=== PATIENT | female | born 1985 | race Caucasian/White ===

== ENCOUNTER 2019-10-07 08:00 | Inpatient (IN) ==
[2019-10-07] MEDS ORDERED: Naloxone 0.4 MG/ML INJ IVP PRN (09:07)
[2019-10-07] MEDS ORDERED: Famotidine 20 MG/2 ML VIAL IVP PRN (09:07)
[2019-10-07] MEDS ORDERED: Metoclopramide 10 MG/2 ML VIAL IVP PRN (09:07)
[2019-10-07] MEDS ORDERED: Ringers Solution, Lactated 1,000 ML IVC SCH (09:15)
[2019-10-07] MEDS: miSOPROStoL 25 MCG TABLET PO PRN ×2 (11:39→17:59)
[2019-10-07 11:46] LABS: Basophils % 0.1 %; Eosinophils % 0.2 %; Hematocrit 33.2 % (35.3-44.9); Immature Granulocytes % 0.9 % (0-4); Lymphocytes # 1.7 K/mcL (0.6-4.6); Lymphocytes % 16.9 %; Mean Corpuscular HGB Conc 33.1 g/dL (31.6-35.5); Mean Corpuscular Hemoglobin 29.7 pg (28.0-33.3); Mean Corpuscular Volume 89.7 fL (83.0-100.0); Mean Platelet Volume 10.1 fL (9.4-12.4); Monocytes # 0.7 K/mcL (0.0-1.3); Monocytes % 7.2 %; Neutrophils # 7.3 K/mcL (1.6-8.9); Platelet Count 154 K/mcL (140-400); Red Cell Distribution Width 14.4 % (11.5-14.5); Segmented Neutrophils % 74.7 %; White Blood Count 9.8 K/mcL (4.3-11.1)
[2019-10-07 11:48] LABS: Amphetamine Screen,Urine Negative ng/mL (Cutoff=1000); Barbiturate Screen,Urine Negative ng/mL (Cutoff=200); Benzodiazepines Screen,Urine Negative ng/mL (Cutoff=200); Cannabinoid Screen,Urine Negative ng/mL (Cutoff = 50); Cocaine Screen,Urine Negative ng/mL (Cutoff= 300); Opiate Screen,Urine Negative ng/mL (Cutoff=300); Phencyclidine Screen,Urine Negative ng/mL (Cutoff=25)
[2019-10-07] MEDS ORDERED: Acetaminophen 325 MG TABLET PO PRN (12:59)
[2019-10-07] MEDS ORDERED: Ondansetron 4 MG/2 ML VIAL IVP PRN (13:00)
[2019-10-07] MEDS: *HR* FentaNYL (PF) 100 MCG/2 ML VIAL IVP PRN ×2 (13:44→17:17)
[2019-10-07] MEDS ORDERED: Oxytocin 20 units/ LR 1000 mL 20 UNIT/1,000 ML BAG IVC SCH (22:30)
[2019-10-08] MEDS ORDERED: *HR* FentaNYL (PF) 100 MCG/2 ML VIAL IVP PRN (03:52)
[2019-10-08] MEDS ORDERED: Naloxone 0.4 MG/ML INJ IVP PRN (07:22)
[2019-10-08] MEDS ORDERED: EPHEDrine 50 MG/ML VIAL IVP PRN (07:22)
[2019-10-08] MEDS ORDERED: Ondansetron 4 MG/2 ML VIAL IVP PRN ×2 (07:22→19:52)
[2019-10-08] MEDS ORDERED: *HR* FentaNYL (PF) 100 MCG/2 ML VIAL EP ONE (07:22)
[2019-10-08] MEDS ORDERED: *HR* FentaNYL (PF) 100 MCG/2 ML VIAL ONE (07:29)
[2019-10-08] MEDS ORDERED: Epidural Premix (fent/bupiv) 110 ML EP SCH (07:30)
[2019-10-08] MEDS ORDERED: D5% in Lactated Ringers 500 ML IV SOLUTION IVC ONE (13:40)
[2019-10-08] MEDS ORDERED: D5% in Lactated Ringers 1,000 ML IVC SCH (14:15)
[2019-10-08] MEDS ORDERED: Vancomycin 1,000 MG in Sodium Chloride IRRigation 250 ML IR ONE (15:15)
[2019-10-08] MEDS ORDERED: Lidocaine -MPF 2% 5 ML VIAL ONE ×2 (15:27→16:21)
[2019-10-08] MEDS ORDERED: Ringers Solution, Lactated 1,000 ML ONE (16:20)
[2019-10-08] MEDS ORDERED: *HR* Oxytocin 10 UNIT/ML VIAL IM ONE (16:21)
[2019-10-08] MEDS ORDERED: *HR* Morphine Sulfate/PF 10 MG/10 ML AMPUL ONE (16:21)
[2019-10-08] MEDS ORDERED: Ketorolac 30 MG/ML VIAL ONE (16:25)
[2019-10-08 16:47] LABS: Basophils % 0.1 %; Eosinophils % 0.1 %; Hematocrit 34.4 % (35.3-44.9); Hemoglobin 11.3 g/dL (11.5-15.4); Immature Granulocytes % 1.1 % (0-4); Lymphocytes # 1.3 K/mcL (0.6-4.6); Mean Corpuscular HGB Conc 32.8 g/dL (31.6-35.5); Mean Corpuscular Hemoglobin 29.5 pg (28.0-33.3); Mean Corpuscular Volume 89.8 fL (83.0-100.0); Mean Platelet Volume 10.6 fL (9.4-12.4); Neutrophils # 12.2 K/mcL (1.6-8.9); Platelet Count 148 K/mcL (140-400); Red Blood Count 3.83 M/mcL (3.82-4.97); Red Cell Distribution Width 14.3 % (11.5-14.5); Segmented Neutrophils % 82.7 %; White Blood Count 14.8 K/mcL (4.3-11.1)
[2019-10-08] MEDS ORDERED: Metoclopramide 10 MG/2 ML VIAL IVP PRN (19:52)
[2019-10-08] MEDS ORDERED: Measles/Mumps/Rubella Vacc 0.5 ML VIAL SQ ONE (19:52)
[2019-10-08] MEDS: Ibuprofen 600 MG TABLET PO SCH (19:53)
[2019-10-08] MEDS ORDERED: Simethicone 80 MG TAB.CHEW PO PRN (20:41)
[2019-10-08] MEDS: Oxytocin 20 units/ LR 1000 mL 20 UNIT/1,000 ML BAG IVC SCH (21:05)
[2019-10-08] MEDS: Acetaminophen 325 MG TABLET PO SCH (23:11)
[2019-10-08] MEDS: *HR* Enoxaparin 40 MG/0.4 ML SYRINGE SQ SCH (23:12)
[2019-10-09] MEDS: Acetaminophen 325 MG TABLET PO SCH ×4 (00:30→18:57)
[2019-10-09] MEDS: ceFAZolin 1,000 MG in Water for inj. (sterile) 10 ML IVP SCH ×2 (00:36→08:23)
[2019-10-09] MEDS: Ibuprofen 600 MG TABLET PO SCH ×5 (00:37→21:56)
[2019-10-09] MEDS: MetroNIDAZOLE 500 MG/100 ML 500 MG/100 ML BAG IVPB SCH ×2 (00:40→08:22)
[2019-10-09 07:36] LABS: Basophils % 0.1 %; Eosinophils % 0.1 %; Hematocrit 28.6 % (35.3-44.9); Immature Granulocytes % 0.6 % (0-4); Lymphocytes # 0.9 K/mcL (0.6-4.6); Lymphocytes % 6.1 %; Mean Corpuscular HGB Conc 33.2 g/dL (31.6-35.5); Mean Corpuscular Hemoglobin 29.8 pg (28.0-33.3); Mean Corpuscular Volume 89.7 fL (83.0-100.0); Mean Platelet Volume 10.5 fL (9.4-12.4); Monocytes # 0.9 K/mcL (0.0-1.3); Monocytes % 6.1 %; Neutrophils # 12.5 K/mcL (1.6-8.9); Platelet Count 120 K/mcL (140-400); Red Blood Count 3.19 M/mcL (3.82-4.97); Red Cell Distribution Width 14.3 % (11.5-14.5); White Blood Count 14.4 K/mcL (4.3-11.1)
[2019-10-09 07:40] LABS: Hemoglobin 9.5 g/dL (11.5-15.4)
[2019-10-09] MEDS: Prenatal Vit/FA 1 EACH TABLET PO SCH (08:21)
[2019-10-09] MEDS: Oxytocin 20 units/ LR 1000 mL 20 UNIT/1,000 ML BAG IVC SCH (08:22)
[2019-10-09] MEDS: *HR* Enoxaparin 40 MG/0.4 ML SYRINGE SQ SCH ×2 (08:26→21:57)
[2019-10-09] MEDS: cephALEXin 500 MG CAPSULE PO SCH ×2 (16:49→21:55)
[2019-10-09] MEDS: *HR* OxyCODONE Immed Rel 5 MG TABLET PO PRN (16:51)
[2019-10-09] MEDS: metroNIDAZOLE 500 MG TABLET PO SCH (21:55)
[2019-10-10] MEDS: *HR* OxyCODONE Immed Rel 5 MG TABLET PO PRN ×2 (01:31→06:38)
[2019-10-10 01:46] VITALS: BP 108/67
[2019-10-10] MEDS: Acetaminophen 325 MG TABLET PO SCH (06:38)
[2019-10-10] MEDS: Prenatal Vit/FA 1 EACH TABLET PO SCH (09:20)
[2019-10-10] MEDS: metroNIDAZOLE 500 MG TABLET PO SCH (09:20)
[2019-10-10] MEDS: *HR* Enoxaparin 40 MG/0.4 ML SYRINGE SQ SCH (09:21)
[2019-10-10] MEDS: cephALEXin 500 MG CAPSULE PO SCH (09:21)
== END 2019-10-10 13:30 | disposition home or self-care (01) | DRG 788 ==
LOC: 1NENULAB 08:08 → 1NENUOBS 10-08 19:53
PROVIDERS: ADMIT Obstetrics & Gynecology; ATTEND Obstetrics & Gynecology

== ENCOUNTER 2020-12-21 05:51 | Inpatient (IN) ==
[2020-12-21] MEDS ORDERED: Metoclopramide 10 MG/2 ML VIAL IVP PRN ×2 (05:53→12:22)
[2020-12-21] MEDS ORDERED: Famotidine 20 MG/2 ML VIAL IVP PRN (05:53)
[2020-12-21] MEDS ORDERED: Naloxone 0.4 MG/ML INJ IVP PRN (05:53)
[2020-12-21 06:32] LABS: Basophils % 0.2 %; Eosinophils # 0.1 K/mcL (0.0-0.6); Eosinophils % 0.6 %; Hematocrit 33.4 % (35.3-44.9); Hemoglobin 10.5 g/dL (11.5-15.4); Immature Granulocytes % 0.6 % (0-4); Lymphocytes # 1.9 K/mcL (0.6-4.6); Lymphocytes % 22.6 %; Mean Corpuscular HGB Conc 31.4 g/dL (31.6-35.5); Mean Corpuscular Hemoglobin 27.3 pg (28.0-33.3); Mean Platelet Volume 11.5 fL (9.4-12.4); Monocytes # 0.6 K/mcL (0.0-1.3); Monocytes % 7.3 %; Neutrophils # 5.7 K/mcL (1.6-8.9); Platelet Count 146 K/mcL (140-400); Red Blood Count 3.84 M/mcL (3.82-4.97); Red Cell Distribution Width 13.6 % (11.5-14.5); Segmented Neutrophils % 68.7 %; White Blood Count 8.2 K/mcL (4.3-11.1)
[2020-12-21] MEDS: Ringers Solution, Lactated 1,000 ML IVC SCH ×2 (06:37→07:26)
[2020-12-21 06:51] LABS: Amphetamine Screen,Urine Negative ng/mL (Cutoff=1000); Barbiturate Screen,Urine Negative ng/mL (Cutoff=200)
[2020-12-21 06:52] LABS: Benzodiazepines Screen,Urine Negative ng/mL (Cutoff=300); Cannabinoid Screen,Urine Negative ng/mL (Cutoff = 50); Cocaine Screen,Urine Negative ng/mL (Cutoff= 300); Opiate Screen,Urine Negative ng/mL (Cutoff=300); Phencyclidine Screen,Urine Negative ng/mL (Cutoff=25)
[2020-12-21] MEDS ORDERED: CEFAZOLIN IVPB ONE (06:58)
[2020-12-21] MEDS ORDERED: Oxytocin 20 units/ LR 1000 mL 20 UNIT/1,000 ML BAG IVC ONE ×2 (07:16→10:33)
[2020-12-21] MEDS ORDERED: *HR* Phenylephrine 10 MG/ML VIAL ONE (07:34)
[2020-12-21] MEDS ORDERED: Ondansetron 4 MG/2 ML VIAL ONE (07:34)
[2020-12-21] MEDS ORDERED: *HR* Morphine Sulfate/PF 10 MG/10 ML AMPUL ONE (07:36)
[2020-12-21] MEDS ORDERED: *HR* FentaNYL (PF) 100 MCG/2 ML VIAL ONE (07:37)
[2020-12-21] MEDS ORDERED: *HR* HYDROmorphone PF 0.5 MG/0.5 ML SYRINGE IVP PRN (08:48)
[2020-12-21] MEDS ORDERED: Acetaminophen IV 1,000 MG/100 ML BAG IVPB ONE (08:52)
[2020-12-21] MEDS ORDERED: Ketorolac 30 MG/ML VIAL ONE (08:59)
[2020-12-21] MEDS ORDERED: Rho Immune Globulin 1,500 UNIT SYRINGE IM ONE (12:22)
[2020-12-21] MEDS ORDERED: Ondansetron 4 MG/2 ML VIAL IVP PRN (12:22)
[2020-12-21] MEDS ORDERED: Albuterol 2.5 MG/3 ML NEBULIZER IH PRN (12:22)
[2020-12-21] MEDS ORDERED: Sennosides 8.6 MG TABLET PO PRN (12:22)
[2020-12-21] MEDS ORDERED: Simethicone 80 MG TAB.CHEW PO PRN (12:22)
[2020-12-21] MEDS ORDERED: Oxytocin 20 units/ LR 1000 mL 20 UNIT/1,000 ML BAG IVC SCH ×2 (12:22)
[2020-12-21] MEDS ORDERED: Ringers Solution, Lactated 1,000 ML IVC SCH (12:22)
[2020-12-21] MEDS: Ibuprofen 600 MG TABLET PO PRN (13:18)
[2020-12-21] MEDS: *HR* OxyCODONE/APAP 5/325 TABLET PO PRN ×2 (15:50→20:54)
[2020-12-21] MEDS: *HR* Enoxaparin 60 MG/0.6 ML SYRINGE SQ SCH (16:56)
[2020-12-22] MEDS: Ibuprofen 600 MG TABLET PO PRN ×4 (02:52→23:57)
[2020-12-22] MEDS: *HR* OxyCODONE/APAP 5/325 TABLET PO PRN ×3 (02:52→20:43)
[2020-12-22 03:56] LABS: Basophils % 0.1 %; Eosinophils % 0.3 %; Hematocrit 27.3 % (35.3-44.9); Hemoglobin 8.5 g/dL (11.5-15.4); Immature Granulocytes % 0.6 % (0-4); Immature Platelets 7.6 % (1.1-6.1); Lymphocytes # 1.7 K/mcL (0.6-4.6); Lymphocytes % 14.4 %; Mean Corpuscular HGB Conc 31.1 g/dL (31.6-35.5); Mean Corpuscular Hemoglobin 27.1 pg (28.0-33.3); Mean Corpuscular Volume 86.9 fL (83.0-100.0); Mean Platelet Volume 10.9 fL (9.4-12.4); Monocytes % 8.2 %; Neutrophils # 8.9 K/mcL (1.6-8.9); Platelet Count 144 K/mcL (140-400); Red Blood Count 3.14 M/mcL (3.82-4.97); Red Cell Distribution Width 13.4 % (11.5-14.5); Segmented Neutrophils % 76.4 %; White Blood Count 11.6 K/mcL (4.3-11.1)
[2020-12-22] MEDS: *HR* Enoxaparin 60 MG/0.6 ML SYRINGE SQ SCH ×2 (06:04→20:34)
[2020-12-22] MEDS: Prenatal Vit/FA 1 EACH TABLET PO SCH (08:00)
[2020-12-23] MEDS: *HR* Enoxaparin 60 MG/0.6 ML SYRINGE SQ SCH (05:42)
[2020-12-23] MEDS: *HR* OxyCODONE/APAP 5/325 TABLET PO PRN (05:42)
[2020-12-23] MEDS: Prenatal Vit/FA 1 EACH TABLET PO SCH (08:59)
[2020-12-23 09:38] VITALS: BP 120/62
[2020-12-23] MEDS ORDERED: Ferumoxytol 510 MG in 0.9 % Sodium Chloride 100 ML IVPB ONE (11:00)
== END 2020-12-23 12:53 | disposition home or self-care (01) | DRG 784 ==
LOC: 1NENULAB 05:51 → 1NENUOBS 12:06
PROVIDERS: ADMIT Obstetrics & Gynecology; ATTEND Obstetrics & Gynecology